=== PATIENT | female | born 1940 | race Caucasian/White ===

== ENCOUNTER → 2023-08-19 11:25 | Outpatient (REF) | payer OTHER, SELFPAY | LOC: HWRAD 11:25 | PROVIDERS: ATTENDING PHYSICIAN Family Medicine | DX: J40 Bronchitis, not specified as acute or chronic (principal); J01.40 Acute pansinusitis, unspecified; R05.1 Acute cough | CPT/HCPCS: 71046 ==

== ENCOUNTER → 2023-09-16 09:25 | Outpatient (REF) | payer OTHER, SELFPAY | LOC: HWRAD 09:25 | PROVIDERS: ATTENDING PHYSICIAN Family Medicine | DX: J18.9 Pneumonia, unspecified organism (principal) | CPT/HCPCS: 71046 ==

== ENCOUNTER 2023-12-04 19:28 | Inpatient (IN) | payer OTHER, SELFPAY ==
[2023-12-04 13:51] VITALS: BP 151/88
--- NOTE | 2023-12-04 16:00 | ED.GENMED ---
History of Present Illness
General
Chief Complaint: Facial Problem
Time Seen by Provider: 12/04/23 15:46
History of Present Illness
History of Present Illness:
83-year-old female with history of hyperlipidemia presents to the emergency department for evaluation of worsening left jaw swelling that began 2 days ago, symptoms have spread from the left jaw down into the left side of the neck and causing mild
painful swallowing. Denies any choking or dysphagia. Denies any speech problems or fevers. Saw her PCP 2 days ago and was started on clindamycin, has taken all of the necessary doses, reportedly 300 mg every 6 hours. Feels as though symptoms
worsened today prompting her to come to the emergency department. No chest pain or shortness of breath
Past History
Past History
ED Past Medical History: Hypercholesterolemia and Hypothyroidism
Social History
Tobacco: Former smoker
Personal: Single
Living: with family
Review of Systems
Review of Systems
Allergies reviewed?: Yes
All Other Systems: ROS reviewed and negative except as documented in HPI and ROS
Phy Exam
Physical Exam
Physical Exam:
GEN: Well appearing, NAD, WDWN
HEENT: Oral mucosa moist, no scleral icterus. Moderate swelling of the left parotid gland extending to the angle of the mandible with associated superior cervical chain adenopathy. Mild trismus, oropharynx otherwise appears to be patent
Cardiac: Regular rate and rhythm, no murmurs
Lung: No respiratory distress, no tachypnea
MSK: No gross deformity or injuries
Skin: Good color, no pallor or jaundice, no rashes
Neuro: AO x3, moves all extremities freely
Psych: Calm, cooperative
Course
Orders/Labs/Results
Orders:
Orders
12/04/23 15:59
CT Facial Bones W/ Iv Contrast Urgent
Comment:
Reason For Exam: L parotitis failing abx
12/04/23 16:23
Complete Blood Count/With Diff Urgent
Comprehensive Metabolic Panel Urgent
12/04/23 17:40
Ketorolac [Toradol] 15 mg IV NOW STA
12/04/23 18:27
CefTRIAXone [Rocephin] 1,000 mg IV NOW STA
MetroNIDAZOLE 500 MG/100 ML [Flagyl 500 mg] 100 ml IV NOW
12/04/23 18:31
Dexamethasone Sod Phosphate [Decadron] 10 mg IV NOW STA
12/04/23 19:17
Admit/Transfer Patient As Directed
Co-Sign Provider:
Level of Care: Inpatient admission
Assign to:: Medical/Surgical
Physician / Group: lolis schultz
Diagnosis: Left-sided parotitis
Reason for Hospitalization: Left-sided parotitis
Expected length of stay greater than two midnights?: Yes
ELOS- Estimated Length of Stay in days: 3
I certify the patient meets the requirements for IP care: Yes
Code Status As Directed
Resuscitation Status: Do not resuscitate
Reached after discussion with pt or family/Healthcare POA: Yes
Based on pt advanced directive or healthcare POA form: Yes
Decision communicated with: per pt
12/04/23 19:18
DNR Bracelet Application ONCE
12/04/23 19:22
PRN Pain Medication Management As Directed
May give lesser potent ordered pain med per pt: Yes
preference::
Protocol:: Medication orders for pain may be administered in a
manner that supports deferring to patient preference
when the pt is:
- Requesting an ordered lesser potent pain medication.
Least to most potent pain medications are defined
as: acetaminophen < NSAID < tramadol < opioids
(morphine, oxycodone, hydromorphone).
- Requesting a lesser dose of the same medication IF
ORDERED.
- Requesting a less intrusive route of administration
if both routes are prescribed by the provider (PO <
IV).
12/04/23 19:23
Losartan [Cozaar] 25 mg PO NOW STA
Speech screening from Nursing [Speech Screening from [facility]] Routine
12/05/23 08:00
Losartan [Cozaar] 25 mg PO DAILY
Abnormal Lab Results
12/04/23
16:23
Absolute Neuts (auto) 7.3 H 10^3/uL
(1.4-6.5)
Absolute Monos (auto) 1.0 H 10^3/uL
(0.1-0.6)
Lymphocytes % 17.7 L %
(20.5-51.1)
Monocytes % 9.8 H %
(1.7-9.3)
Carbon Dioxide 31 H mmol/L
(22-30)
Glucose 116 H mg/dl
(70-99)
12/04/23 16:23
12/04/23 16:23
Vital Signs
Initial and Last Documented VS:
Initial Vital Signs
Temp Pulse Resp BP Pulse Ox
98.5 F 55 16 151/88 96
12/04/23 13:51 12/04/23 13:51 12/04/23 13:51 12/04/23 13:51 12/04/23 13:51
Last Documented Vital Signs
Temp Pulse Resp BP Pulse Ox
98.5 F 57 18 165/93 96
12/04/23 13:51 12/04/23 17:56 12/04/23 17:56 12/04/23 17:15 12/04/23 17:00
MDM/Problems Addressed
MDM/Problems Addressed:
Due to the failure of outpatient treatment coupled with the limited treatment options as patient is penicillin allergic, will admit for IV antibiotics. Given the clindamycin has not provided improvement we will switch to ceftriaxone and
metronidazole for inpatient therapy. Initial dose of steroids given in the emergency department
*Critical Care Note
Total Time (30-74mins, 75-104mins- exclusive of procedures): Not Applicable
ED Attending Note
-
Portions of this chart may have been created with voice recognition software.� Occasional wrong word or��sound alike� substitutions may have occurred due to the inherent limitations of voice recognition software.
Discharge Plan
Departure
Patient Disposition: Admit
Date of Disposition: 12/04/23
Time of Disposition: 18:29
Admit to: Med/Surg
Presentation/result/management discussed w/ accepting MD/DO: Hospitalist
Discharge Problem:
Acute parotitis, Failure of outpatient treatment
Interventions
Interventions:
*Risk Screen - Suicide Last Done: 12/04/23 13:51
*General Assessment Last Done: 12/04/23 13:51
*Neglect/Abuse Screening Last Done: 12/04/23 13:51
*ED COVID-19 Vaccine History Last Done: 12/04/23 16:16
ED- Neurological Assessment Last Done: 12/04/23 16:26
ED-Skin Assessment Last Done: 12/04/23 16:26
[2023-12-04 16:15] VITALS: BMI 41.3
[2023-12-04 16:33] LABS: % Basophils 0.3 % (0-2); % Eosinophils 2.5 % (0-6); % Immature Granulocytes 0.3 % (0-0.5); % Lymphocytes 17.7 % (20.5-51.1); % Monocytes 9.8 % (1.7-9.3); % Neutrophils 69.4 % (42.2-75.2); Absolute Eosinophils 0.3 10^3/uL (0-0.7); Absolute Lymphocytes 1.9 10^3/uL (1.2-3.4); Absolute Neutrophils 7.3 10^3/uL (1.4-6.5); Hematocrit 39.2 % (37.0-47.0); Hemoglobin 13.5 g/dL (12.0-16.0); Mean Corp Hgb Conc. 34.4 g/dL (33.0-37.0); Mean Corpuscular Hgb 29.3 pg (27.0-31.0); Mean Corpuscular Volume 85.2 fL (81.0-99.0); Mean Platelet Volume 9.3 fL (7.4-10.4); Nucleated Red Blood Cells % 0 %; Platelet Count 206 10^3/uL (130-400); Red Cell Dist. Width 11.9 % (11.5-14.5); White Blood Cell Count 10.4 10^3/uL (4.8-10.8)
[2023-12-04 16:51] LABS: ALT (SGPT) 16 U/L (0-35); AST (SGOT) 29 U/L (14-36); Albumin 4.2 g/dl (3.5-5.0); Alkaline Phosphatase 90 U/L (38-126); Blood Urea Nitrogen 9 mg/dl (7-17); Calcium 9.4 mg/dl (8.4-10.2); Carbon Dioxide 31 mmol/L (22-30); Chloride 101 mmol/L (98-107); Estimated Creatinine Clearance 79 ml/min; Glucose 116 mg/dl (70-99); Potassium 3.9 mmol/L (3.5-5.1); Sodium 137 mmol/L (135-145); Total Bilirubin 0.7 mg/dl (0.2-1.3); Total Protein 6.7 g/dl (6.3-8.2); eGFR > 60.00
[2023-12-04 17:15] VITALS: BP 165/93
[2023-12-04] MEDS: TORADOL 15 MG IV (17:44)
[2023-12-04] MEDS: FLAGYL 500 MG 100 IV (18:36)
[2023-12-04] MEDS: ROCEPHIN 1000 MG IV (18:36)
[2023-12-04] MEDS: DECADRON 10 MG IV (18:36)
--- NOTE | 2023-12-04 18:55 | HPS.HSE ---
Family Physician
-
Family Physician: J Luis Tolentino
Chief Complaint
-
Left-sided jaw swelling/parotid swelling
History of Present Illness
83-year-old female complaining of worsening left jaw swelling that began 2 days ago spreading down to the left side of her neck with painful swallowing. She denies dysphagia or choking episodes, although she reports it was difficult to swallow the
clindamycin tablets. She was able to swallow all of her regular routine medications. She was placed on clindamycin 2 days ago 300 mg every 6 hours with no improvement. She denies hoarse voice fever, chills, chest pain, palpitations, shortness
breath, cough, abdominal pain, nausea, vomiting, diarrhea, urinary symptoms. She has past medical history of HLD, hypothyroidism, former smoker, obesity, GERD, cardiac murmur.
Medical History
Past Medical History
Past Medical History: Reports Other
Additional Past Medical History:
HLD
hypothyroidism
former smoker
obesity
GERD
cardiac murmur
Past Surgical History: Reports Other
Additional Past Surgical History:
Left shoulder rotator cuff repair
Bilateral knee replacements
Hysterectomy
Social History
Tobacco: Non-smoker
Alcohol: None
Drug: None
Family History
Family History: Not pertinent
Allergies / Home Medications
Allergies reflects when Allergies were last updated in [employer].
Home Medications with original date entered in [employer]
Allergy/Medication List:
Allergies
Allergy/AdvReac Type Severity Reaction Status Date / Time
ampicillin Allergy Hives Verified 12/17/18 11:53
poison moncho extract Allergy Rash Verified 12/17/18 11:53
shellfish derived Allergy Vomiting Verified 12/17/18 11:53
Home Medications
Pepcid 20 mg PO DAILY 12/04/23
acetaminophen 500 mg tablet 1,000 mg PO Q4HPRN PRN mild pain 12/04/23
citalopram 40 mg tablet 40 mg PO DAILY 12/04/23
clindamycin HCl 300 mg capsule 600 mg PO TID 12/04/23
hydrochlorothiazide 25 mg tablet 25 mg PO DAILY 12/04/23
levothyroxine 88 mcg tablet 88 mcg PO DAILY 12/04/23
lovastatin 20 mg tablet 20 mg PO QPM 12/04/23
Review of Systems
-
History Source: Patient
A 12 point ROS was completed and negative except as noted: Yes
Constitutional: Denies Fever or Chills
EENT: Reports Other (Left parotid swelling preauricular down to left mandible slightly into left side neck TM intact no otitis externa or otitis media); Denies Tearing
Respiratory: Denies Cough or Trouble Breathing
Cardiac: Denies Chest Pain, Diaphoresis, Palpitations or Syncope
Abdomen/GI: Denies Abdominal Pain, Nausea, Vomiting, Diarrhea or Constipated
: Denies Dysuria, Frequency, Flank Pain, Incontinence or Difficulty Voiding
Musculoskeletal: Denies Joint Pain or Edema
Skin: Denies Itching or Rash
Neurological: Denies Dizzy, Headache or Weakness
Endocrine: Reports No Symptoms
Hematologic/Lymphatic: Reports No Symptoms
Psych: Reports Calm
Physical Exam
Vital Signs
Vital Signs
Temp Pulse Resp BP Pulse Ox
98.5 F 57 18 165/93 96
12/04/23 13:51 12/04/23 17:56 12/04/23 17:56 12/04/23 17:15 12/04/23 17:00
Physical Exam
General: Comfortable, Conversant and Pain; No Fever or Chills
HEENT: NormoCephalic, Anicteric, PERRLA, Belcher Conjunctivae, No Ptosis and Other (Left parotid swelling preauricular down to left mandible slightly into left side neck TM intact no otitis externa or otitis media)
Respiratory: Clear; No Wheezes, Rales or Rhonchi
Cardiac: S1/S2, Regular Rhythm and Murmur (3/6 systolic); No Rub, Gallop or Peripheral Edema
Breast: Deferred by me
GI: Soft, Non Tender, Non Distended, Normal Bowel Sounds and No Hepatosplenomegaly
Rectal: Deferred by Provider
Genito-urinary: Deferred by me
Musculoskeletal: No Clubbing, No Cyanosis and No Edema
Skin: Warm, Dry and Rash
Neuro: AO x 3, No Motor Deficits, Nonfocal/grossly intact and No Sensory Deficits; No Slurred Speech, Facial Droop or Tremors
Psych: Calm
Laboratory Results
-
12/04/23 16:23
12/04/23 16:23
Laboratory Results
Total Bilirubin 0.7 mg/dl (0.2-1.3) 12/04/23 16:23
AST 29 U/L (14-36) 12/04/23 16:23
ALT 16 U/L (0-35) 12/04/23 16:23
Alkaline Phosphatase 90 U/L (38-126) 12/04/23 16:23
Impression/Plan
-
Impression/plan:
Admit to [facility]
#Left parotiditis with mild retropharyngeal edema at C2-C4 no airway compromise
Patient has taken clindamycin 3 mg p.o. every 6 hours x 2 days
Afebrile, nontoxic
Decadron 10 mg given in ER will continue Decadron 4 mg every 12 hours
-Nursing bedside swallow eval
-head of bed elevated at all times
-Monitor pulse ox
-IV Rocephin, IV Flagyl
-Continue patient's Pepcid 20 mg daily
-Tylenol, Toradol, Percocet severe pain
-Mechanical soft diet
-Pain control
PT/OT/case management consult
CT facial bones with IV contrast:
1. Findings consistent with left parotiditis. No intraparotid focal collection/abscess or mass. No apparent parotid gland or duct stone.
2. Mild retropharyngeal edema is noted from approximately C2-C4, without focal collection to suggest abscess. No airway compromise.
3. Incidental carotid calcification. Consider follow-up nonemergent ultrasound assessment.
4. Mild chronic sinusitis.
#HTN to be established
BP 165/93
-Will hold HCTZ
-Start losartan 25 mg now and daily
#Hypothyroid
-Continue levothyroxine
#HLD
-Continue lovastatin
#Depression
-Continue citalopram 40 mg daily
#Ex-smoker
#GERD
Pepcid 20 mg OTC daily
#Chronic peripheral edema
No current edema appreciated
Hold HCTZ 25 mg daily
#Known cardiac murmur
-Follows with Dr. Rendon
No echo available in chart
DVT prophylaxis
Subcu Lovenox
DNR per patient
--- NOTE | 2023-12-04 19:08 | W.PN.UPDATE ---
Addendum entered and electronically signed by Antonio Mckeon MD 12/04/23 19:12:
Patient only takes HCTZ occasionally for swelling. Will start Losartan for elevated blood pressure.
Original Note:
Update Note
Progress Note Update
This is an addendum to the H&P written by Deborah Velázquez on 12/04/2023.� Patient seen and examined independently with [employer].� 83-year-old female past medical history of hyperlipidemia, hypothyroidism, hypertension, depression, presenting with left jaw pain
starting 2 days ago with progression to the neck with painful swallowing with progression despite treatment with clindamycin [address] facial bones shows left-sided parotitis without intraparotid collection/abscess or mass.� There is mild retropharyngeal edema C2-C4 without focal collection to suggest abscess.� No airway compromise.
Labs unremarkable.� Ceftriaxone/Flagyl.� Continue dexamethasone. Mechanical soft diet.�
[2023-12-04] MEDS: COZAAR 25 MG PO (19:35)
[2023-12-04 20:15] VITALS: BP 182/88; BMI 40.5
[2023-12-04] MEDS: TYLENOL 650 MG PO (21:30)
[2023-12-04 23:10] VITALS: BP 166/80
[2023-12-05] MEDS: FLAGYL 500 MG IV ×3 (02:00→02:01)
[2023-12-05] MEDS: FLAGYL 500 MG 100 IV ×3 (02:02→17:07)
[2023-12-05 08:07] LABS: % Basophils 0.1 % (0-2); % Immature Granulocytes 0.4 % (0-0.5); % Lymphocytes 11.4 % (20.5-51.1); % Monocytes 1.5 % (1.7-9.3); % Neutrophils 86.6 % (42.2-75.2); Absolute Lymphocytes 0.9 10^3/uL (1.2-3.4); Absolute Monocytes 0.1 10^3/uL (0.1-0.6); Hematocrit 40.6 % (37.0-47.0); Hemoglobin 14.1 g/dL (12.0-16.0); Mean Corp Hgb Conc. 34.7 g/dL (33.0-37.0); Mean Corpuscular Hgb 29.7 pg (27.0-31.0); Mean Corpuscular Volume 85.7 fL (81.0-99.0); Mean Platelet Volume 9.3 fL (7.4-10.4); Nucleated Red Blood Cells % 0 %; Platelet Count 203 10^3/uL (130-400); Red Blood Cell Count 4.74 10^6/uL (4.20-5.40); Red Cell Dist. Width 11.7 % (11.5-14.5); White Blood Cell Count 8.1 10^3/uL (4.8-10.8)
[2023-12-05] MEDS: DECADRON 4 MG IV ×2 (08:44→20:35)
[2023-12-05] MEDS: PEPCID 20 MG PO (08:46)
[2023-12-05] MEDS: COZAAR 25 MG PO (08:46)
[2023-12-05 08:47] LABS: ALT (SGPT) 17 U/L (0-35); AST (SGOT) 28 U/L (14-36); Albumin 4.3 g/dl (3.5-5.0); Alkaline Phosphatase 118 U/L (38-126); Blood Urea Nitrogen 14 mg/dl (7-17); Calcium 9.8 mg/dl (8.4-10.2); Carbon Dioxide 29 mmol/L (22-30); Chloride 101 mmol/L (98-107); Estimated Creatinine Clearance 78 ml/min; Glucose 161 mg/dl (70-99); Potassium 4.1 mmol/L (3.5-5.1); Sodium 137 mmol/L (135-145); Total Bilirubin 0.6 mg/dl (0.2-1.3); Total Protein 6.7 g/dl (6.3-8.2); eGFR > 60.00
[2023-12-05 09:00] VITALS: BP 168/75; PULSE 57; O2SAT 96
[2023-12-05] MEDS: TORADOL 10 MG IV ×3 (09:49→22:55)
[2023-12-05 11:36] VITALS: BP 152/65
--- NOTE | 2023-12-05 11:56 | W.PN.HOSP.TC ---
Today's Communication/Plan
-
continue abx/steroids
diet as tolerated
BP control
Assessment / Plan
Assessment / Plan
CT facial bones with IV contrast:
1. Findings consistent with left parotiditis. No intraparotid focal collection/abscess or mass. No apparent parotid gland or duct stone.
2. Mild retropharyngeal edema is noted from approximately C2-C4, without focal collection to suggest abscess. No airway comp
3. Incidental carotid calcification. Consider follow-up nonemergent ultrasound assessment.
4. Mild chronic sinusitis.

# Acute left parotitis
Failure of oral antibiotics therapy
-Patient took 48 hours of clindamycin therapy without improvement in symptoms
-CT face showing parotitis without sialolithiasis. Mild retropharyngeal edema without any abscess.
-No signs of systemic sepsis.
-Patient got IV Decadron in ER, being maintained on it.
-Antibiotic changed to Rocephin and Flagyl.
-Symptomatic care
-Diet as tolerated
#Diarrhea
-Reported episodic diarrhea/chronic symptom
-Imodium PRN ordered
#Essential HTN - uncontrolled
-Continue losartan. PRN Hydralazine ordered
Hypothyroidism
Depression/anxiety
GERD
Former smoker
Chronic venous insufficiency
Murmur - unknown valvulopathy
DVT prophylaxis Subcu Lovenox
DNR per patient
Anticipated Discharge: Within 24 hours
Subjective/Interval History
-
Date of Service: December 05, 2023
Left-sided facial pain/swelling is better
some diarrhea ongoing
Objective Data
-
Labs:
Laboratory Results
12/05/23
07:40
WBC 8.1
Hgb 14.1
Hct 40.6
Plt Count 203
Sodium 137
Potassium 4.1
Chloride 101
Carbon Dioxide 29
BUN 14
Creatinine 0.6
Glucose 161 H
Calcium 9.8
Total Bilirubin 0.6
AST 28
ALT 17
Alkaline Phosphatase 118
Vital Signs:
Vital Signs
Temp Pulse Resp BP Pulse Ox
98.1 F 57 16 152/65 96
12/05/23 07:35 12/05/23 08:46 12/05/23 07:35 12/05/23 11:36 12/05/23 07:35
I&O
12/04/23 12/05/23 12/06/23
06:59 06:59 06:59
Intake Total 240 / 240
Balance 240 / 240
Review of Systems
-
Respiratory: Reports No Symptoms
Cardiac: Reports No Symptoms
Abdomen/GI: Reports No Symptoms
Physical Exam
-
General: No Apparent Distress and Comfortable
HEENT: Other (Left sided parotid swelling ); Negative Oxygen
Respiratory: Clear to Auscultation
Cardiac: Regular Rhythm and S1/S2; Negative Murmur or Rub
GI: Soft, Nontender, Nondistended and Normal Bowel Sounds
Musculoskeletal: No Edema
Neuro: Awake, Alert, Oriented, No Motor Deficits and Nonfocal/Grossly Intact
Psych: Calm
--- NOTE | 2023-12-05 12:51 | CM ---
Initial Assessment completed with pt at bedside.
Pt is an 83yr old female admitted with left-sided parotitis.
At baseline, pt lives in an inlaws suite off her sons home. There is a threshold to enter and 1 floor living.
Pt is indep with no DME or recent use of VN. Pt drives.
PCP; J Luis Tolentino
Pharm; [facility] or [facility] in [place]
PLAN; Home with no needs anticipated
[2023-12-05 15:01] VITALS: BP 154/76
[2023-12-05 15:32] VITALS: BP 154/76
[2023-12-05] MEDS: LOVENOX 40 MG SC (17:07)
[2023-12-05] MEDS: ROCEPHIN 1000 MG IV (17:08)
[2023-12-05] MEDS: STERILE WATER FOR INJECTION 10 ML IV (17:46)
[2023-12-05] MEDS: APRESOLINE 10 MG IV (23:09)
[2023-12-06] MEDS: FLAGYL 500 MG 100 IV ×2 (02:42→09:37)
[2023-12-06] MEDS: ROXICODONE 5 MG PO (02:45)
[2023-12-06 07:00] VITALS: BP 103/57
[2023-12-06] MEDS: PEPCID 20 MG PO (07:30)
[2023-12-06 07:37] LABS: % Immature Granulocytes 0.6 % (0-0.5); % Lymphocytes 10.1 % (20.5-51.1); % Monocytes 4.2 % (1.7-9.3); % Neutrophils 85.1 % (42.2-75.2); Absolute Immature Granulocytes 0.1 10^3/uL (0-0.05); Absolute Monocytes 0.4 10^3/uL (0.1-0.6); Absolute Neutrophils 8.8 10^3/uL (1.4-6.5); Hematocrit 38.6 % (37.0-47.0); Hemoglobin 13.2 g/dL (12.0-16.0); Mean Corp Hgb Conc. 34.2 g/dL (33.0-37.0); Mean Corpuscular Hgb 29.6 pg (27.0-31.0); Mean Corpuscular Volume 86.5 fL (81.0-99.0); Mean Platelet Volume 9.3 fL (7.4-10.4); Nucleated Red Blood Cells % 0 %; Platelet Count 216 10^3/uL (130-400); Red Blood Cell Count 4.46 10^6/uL (4.20-5.40); White Blood Cell Count 10.3 10^3/uL (4.8-10.8)
[2023-12-06] MEDS: DECADRON 4 MG IV (07:54)
[2023-12-06] MEDS: TORADOL 10 MG IV (07:55)
[2023-12-06 08:06] LABS: ALT (SGPT) 18 U/L (0-35); AST (SGOT) 29 U/L (14-36); Albumin 4.1 g/dl (3.5-5.0); Alkaline Phosphatase 91 U/L (38-126); Blood Urea Nitrogen 22 mg/dl (7-17); Calcium 9.5 mg/dl (8.4-10.2); Carbon Dioxide 28 mmol/L (22-30); Chloride 101 mmol/L (98-107); Estimated Creatinine Clearance 67 ml/min; Glucose 165 mg/dl (70-99); Potassium 4.1 mmol/L (3.5-5.1); Sodium 135 mmol/L (135-145); Total Bilirubin 0.3 mg/dl (0.2-1.3); Total Protein 6.3 g/dl (6.3-8.2); eGFR > 60.00
[2023-12-06] MEDS: COZAAR PO (10:43)
[2023-12-06 12:08] VITALS: BP 118/64
--- NOTE | 2023-12-06 14:06 | W.PN.HOSP.TC ---
Today's Communication/Plan
-
d/c home
Assessment / Plan
Assessment / Plan
CT facial bones with IV contrast:
1. Findings consistent with left parotiditis. No intraparotid focal collection/abscess or mass. No apparent parotid gland or duct stone.
2. Mild retropharyngeal edema is noted from approximately C2-C4, without focal collection to suggest abscess. No airway comp
3. Incidental carotid calcification. Consider follow-up nonemergent ultrasound assessment.
4. Mild chronic sinusitis.

# Acute left parotitis
Failure of oral antibiotics therapy
-Patient took 48 hours of clindamycin therapy without improvement in symptoms
-CT face showing parotitis without sialolithiasis. Mild retropharyngeal edema without any abscess.
-No signs of systemic sepsis.
-Patient got IV Decadron in ER, being maintained on it.
-Discharge patient on oral cefuroxime and Flagyl course
-Recommended good oral hydration and hygiene
-Gentle massaging of salivary gland periodically
-Follow-up with PCP and any recurrent episode will require to be seen by ENT
#Diarrhea
-Reported episodic diarrhea/chronic symptom
-Imodium PRN ordered
#Essential HTN - uncontrolled
-Continue losartan. PRN Hydralazine ordered
Hypothyroidism
Depression/anxiety
GERD
Former smoker
Chronic venous insufficiency
Murmur - unknown valvulopathy
DVT prophylaxis Subcu Lovenox
DNR per patient
More than 30 minutes spent in discharge including
Final examination of the patient
Summarizing hospital stay
Instructions for continuing care to all relevant caregivers
Preparation of discharge records, prescriptions, and referral forms
Total time spent (in minutes): 39 mins
Anticipated Discharge: Today
Subjective/Interval History
-
Date of Service: December 06, 2023
Left-sided salivary/parotid gland pain is better
Swelling improved
Objective Data
-
Labs:
Laboratory Results
12/06/23
07:11
WBC 10.3
Hgb 13.2
Hct 38.6
Plt Count 216
Sodium 135
Potassium 4.1
Chloride 101
Carbon Dioxide 28
BUN 22 H
Creatinine 0.7
Glucose 165 H
Calcium 9.5
Total Bilirubin 0.3
AST 29
ALT 18
Alkaline Phosphatase 91
Vital Signs:
Vital Signs
Temp Pulse Resp BP Pulse Ox
98.0 F 62 16 118/64 98
12/06/23 12:08 12/06/23 12:08 12/06/23 12:08 12/06/23 12:08 12/06/23 12:08
I&O
12/05/23 12/06/23 12/07/23
06:59 06:59 06:59
Intake Total 240 / 240 1690 / 1690
Balance 240 / 240 1690 / 1690
Review of Systems
-
Respiratory: Reports No Symptoms
Cardiac: Reports No Symptoms
Abdomen/GI: Reports No Symptoms
Physical Exam
-
General: No Apparent Distress and Comfortable
HEENT: Other (Left sided parotid swelling ); Negative Oxygen
Respiratory: Clear to Auscultation
Cardiac: Regular Rhythm and S1/S2; Negative Murmur or Rub
GI: Soft, Nontender, Nondistended and Normal Bowel Sounds
Musculoskeletal: No Edema
Neuro: Awake, Alert, Oriented, No Motor Deficits and Nonfocal/Grossly Intact
Psych: Calm
--- NOTE | 2023-12-06 15:01 | W.DCSUMMARY ---
Discharge Summary
Discharge Data
Date of Admission: 12/04/23
Date of Discharge: 12/06/23
-
Pending Results: No
Hospital Course
Discharging Physician : Dr Wilber Tristan
Disposition : Home
Primary care physician : Dr J Luis Tolentino
Principal Discharge diagnosis :
Acute parotitis
Retropharyngeal edema on imaging
Chronic Discharge diagnosis :
Irritable bowel syndrome type D
Essential hypertension
Hypothyroidism
Depression/anxiety
Gastroesophageal reflux disease
Former smoker
Chronic lower extremity venous insufficiency
Hospital Course :
Patient is 83-year-old female with above-mentioned past medical history came to ER with having left-sided cheek/facial swelling extending to neck. Patient was diagnosed for acute parotitis in office and was provided clindamycin for treatment
unfortunately patient had progressive symptoms and came to ER. CT head and neck showed parotitis without sialolithiasis or any complicating abscess. Patient was noticed to having some retropharyngeal edema as well. As patient allergic to
penicillin patient was started on Rocephin and Flagyl. Patient was also started on IV dexamethasone. Patient was maintained on other symptomatic care during the hospital stay. Next 48 hours patient symptoms improved without further complication.
Patient was discharged on finishing course of cefuroxime and Flagyl. Patient to follow-up with family care physician and if continues to have recurrent parotitis will benefit with seeing ENT.
Important imaging findings :
None
Procedure findings :
None
Discharge Plan
-
Patient Disposition: Home (Routine Discharge)
Discharge Diagnosis/Procedures: Acute parotitis
Condition: Fair
Diet: Regular and Other diet
Additional Diets: Maintain good hydration for next few days
Activity: As tolerated
Driving Restrictions: As prior to admission
Bathing Restrictions: OK to Shower
Activity Restrictions/Additional Instructions:
Use Tart candies/lemonade to help secret saliva
Warm compress and gentle massage of left salivary gland every 1-2 hr.
Referrals:
J Luis Tolentino MD [Family Provider] - in one week
Prescriptions:
New
ibuprofen 400 mg tablet
400 mg PO Q8H PRN (Reason: If pain despite taking tylenol) Qty: 14 0RF
cefuroxime axetil 500 mg tablet
500 mg PO BID Qty: 10 0RF
metronidazole 500 mg tablet
500 mg PO Q8H 5 Days Qty: 15 0RF
Continued
citalopram 40 mg tablet
40 mg PO DAILY
levothyroxine 88 mcg tablet
88 mcg PO DAILY
hydrochlorothiazide 25 mg tablet
25 mg PO DAILY
lovastatin 20 mg tablet
20 mg PO QPM
Pepcid
20 mg PO DAILY
melatonin 5 mg Tablet
5 mg PO HS PRN (Reason: sleep)
Changed
acetaminophen 500 mg Tablet
1,000 mg PO Q8HPRN PRN (Reason: mild pain) Qty: 0 0RF
Discontinued
clindamycin HCl 300 mg capsule
600 mg PO TID
Discharge Orders:
Discharge Patient (As Directed); Ordered 12/06/23
Ordered By: Wilber Tristan
Discharge Date and Time
Discharge Date/Time: 12/06/23 12:05
Print Language: MACEDONIAN
--- NOTE | 2023-12-06 15:07 | CM ---
Pt for discharge.
IMM issued. No transportation needs identified.
Pt declines need for VN
== END 2023-12-06 12:05 | disposition home or self-care (01) | DRG 155 ==
LOC: 3 WEST ACU 19:28
PROVIDERS: Clinical Nurse Specialist Family Health; Physician Assistant; ADMITTING PHYSICIAN Hospitalist; ATTENDING PHYSICIAN Hospitalist; EMERGENCY PHYSICIAN Emergency Medicine; FAMILY PHYSICIAN Family Medicine
DX: K11.21 Acute sialoadenitis (principal); Z68.41 Body mass index [BMI] 40.0-44.9, adult; E03.9 Hypothyroidism, unspecified; E78.00 Pure hypercholesterolemia, unspecified; K21.9 Gastro-esophageal reflux disease without esophagitis; Z66 Do not resuscitate; E66.9 Obesity, unspecified; K58.0 Irritable bowel syndrome with diarrhea; I87.2 Venous insufficiency (chronic) (peripheral); R01.1 Cardiac murmur, unspecified; I10 Essential (primary) hypertension; F41.9 Anxiety disorder, unspecified; F32.A Depression, unspecified; Z79.890 Hormone replacement therapy; Z87.891 Personal history of nicotine dependence; Z88.0 Allergy status to penicillin
CPT/HCPCS: 70487; 80053; 85025; 96365; 96375; 97116; 97161; 99285; Q9967

== ENCOUNTER → 2024-03-21 09:11 | Outpatient (REF) | payer OTHER, SELFPAY | LOC: HWRCS 09:11 | PROVIDERS: ATTENDING PHYSICIAN Internal Medicine Cardiovascular Disease; FAMILY PHYSICIAN Family Medicine | DX: R01.1 Cardiac murmur, unspecified (principal) | CPT/HCPCS: 93306 ==

== ENCOUNTER → 2025-01-25 11:20 | Outpatient (REF) | payer OTHER, SELFPAY | LOC: HWRAD 11:20 | PROVIDERS: ATTENDING PHYSICIAN Family Medicine | DX: M25.552 Pain in left hip (principal); E11.8 Type 2 diabetes mellitus with unspecified complications | CPT/HCPCS: 73502 ==

== ENCOUNTER → 2025-03-17 12:53 | Outpatient (REF) | payer OTHER, SELFPAY | LOC: RCS 12:53 | PROVIDERS: ATTENDING PHYSICIAN Internal Medicine Cardiovascular Disease; FAMILY PHYSICIAN Family Medicine | DX: I35.0 Nonrheumatic aortic (valve) stenosis (principal); I10 Essential (primary) hypertension | CPT/HCPCS: 93306 ==